=== PATIENT | female | born 1955 | race Caucasian/White ===

== ENCOUNTER 2019-04-06 07:23 | Emergency (ER) | payer SELFPAY ==
[2019-04-06 07:27] VITALS: BP 183/114; PULSE 84; RESP 18; TEMP 36.8; O2SAT 98; BMI 32.4
--- NOTE | 2019-04-06 07:29 | XR_ITS ---
WS: [id number] WRIST RIGHT TECHNIQUE: 2 views of the right wrist CLINICAL INFORMATION: fall COMPARISON: None. FINDINGS: Comminuted fracture distal radius. Dorsal displacement of the distal fragment. Displacement approxima tely 1 shaft width. Soft tissue edema. Ulna styloid avulsion. 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 XR/XR wrist RT 2V [id number] IMPRESSION: 1. Comminuted fracture distal radius with dorsal displacement of the distal fr agment approximately one shaft width. 2. Ulna styloid avulsion. 3. Soft tissue edema.
--- NOTE | 2019-04-06 07:30 | W.ED.UPPEXIN ---
HPI - Extremity Injury (Upper) General: Chief Complaint: Extremity Injury, Upper Stated Complaint: RIGHT WRIST PAIN POST FALL Time Seen by Provider: 04/06/19 07:25 Source: patient Mode of arrival: ambulatory Limitations: no limitations History of Present Illness: HPI narrative: 63 yo female patient presents to ER c/o tripping and falling landing on right wrist. Pt did not hit head and had no LOC. pt states she just trip with no preceeding symptoms to fall. 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) Other injuries: none Place: home Severity: moderate Relieving factors: immobilization Exacerbating factors: movement of extremity Context: fall Associated symptoms: Reports no associated symptoms; Denies weakness in extremities Review of Systems Const: Denies: fever or chills Eyes: Denies: change in vision ENMT: Denies: throat pain or dental pain Card: Denies: chest pain or palpitations Resp: Denies: shortness of breath, wheezing or stridor GI: Denies: abdominal pain, nausea or vomiting : Denies: flank pain, difficulty urinating, painful urination or urinary frequency Musc: Reports: joint pain (right wrist pain) Skin/Breast: Denies: rash Neuro: Denies: headache, numbness in extremities or weakness in extremities Psych: Denies: anxiety, suicidal ideation or homicidal ideation PFSH ED PFSH: Statuses (acute, chronic, etc) shown below reflect problem list status as previously entered and may not be historically accurate Social History (Updated 04/06/19 @ 12:26 by Juanpablo Ott MD) Smoking and tobacco status: never smoked Current occupation: Patient does [employer] work at the [employer] here in [place] Physical Exam Const: COMMON NORMALS: no apparent distress and no limitations GENERAL APPEARANCE: cooperative ORIENTATION/CONSCIOUSNESS: Yes awake, Yes oriented to person, Yes oriented to place and Yes oriented to time Resp: COMMON NORMALS: normal respiratory effort, no retractions and clear to auscultation bilaterally AUSCULTATION: clear to auscultation bilaterally Cardio: COMMON NORMALS: regular rate and regular rhythm RATE: regular rate RHYTHM: regular rhythm : COMMON NORMALS: Yes no CVA tenderness BLADDER/KIDNEY EXAM: Yes no CVA tenderness Back/Pelvis: COMMON NORMALS: no CVA tenderness, thoracic and lumbar spine normal to inspection, no thoracic nor lumbar tenderness and thoraco-lumbar ROM normal THORACIC SPINE/UPPER BACK: Yes normal to inspection and Yes thoracic ROM normal LUMBAR SPINE/LOWER BACK: Yes normal to inspection and Yes lumbar ROM normal Extremity: RIGHT UPPER EXTREMITY: Yes wrist Right wrist: Yes inspection (deformity noted to distal ulnar/radial), Yes ROM (limited due to pain) and Yes neurovascular exam (intact) Neuro: SENSORIUM/ORIENTATION: Yes oriented to person, Yes oriented to place and Yes oriented to time Course ED course: I suspect patient has a distal ulnar/radial fracture that will possibly require reduction. I will order xray at this time. Pt states she does not want anything for pain at this time. Pt is NVI distal to deformity of right wrist. I discussed case with Dr. Ott. He will come in at noon to attempt reduction in ER and if unsuccessful will plan to take to surgery. Pt pain is controlled at this time. Pt remains NVI. Dr. Ott attempted reductio in the ER but plans to take to outpatient surgery tomorrow. Pt has been advised on instructions. Will send patienthome with short course of pain meds. Risk advised Return precautions advised. SPlint placed pt NVI after splint application Vital Signs: Vital signs: Vital Signs Temperature 98.3 F 04/06/19 07:27 Pulse Rate 87 04/06/19 10:34 Respiratory Rate 18 04/06/19 07:27 Blood Pressure 149/93 04/06/19 10:34 Pulse Oximetry 95 04/06/19 10:34 Discharge Plan Discharge Patient Disposition: Home, Self-Care Clinical Impression: Fracture of wrist Qualifiers: Encounter type: initial encounter Fracture type: closed Laterality: right Qualified Code(s): S62.101A - Fracture of unspecified carpal bone, right wrist, initial encounter for closed fracture Closed fracture of ulna, styloid process Qualifiers: Encounter type: initial encounter Fracture alignment: nondisplaced Laterality: right Qualified Code(s): S52.614A - Nondisplaced fracture of right ulna styloid process, initial encounter for closed fracture Condition: Stable Prescriptions: [place] 5-325 mg tablet 1 tab PO Q8H PRN (Reason: pain) Qty: 14 RF: 0 No Action ibuprofen 200 mg Tablet 400 mg PO PRN RF: 0 Bc Powder 1 packet PO PRN RF: 0 Discharge Orders: Discharge Order (Routine); Ordered 04/06/19 Ordered By: Shanae Perez Referrals: [facility] [Other] Shanae Perez [Emergency Provider] - Juanpablo Ott MD [Physician] - (Tomorrow for outpatient surgery) Patient Instructions: Wrist Fracture in Adults (ED) Activity Restrictions/Additional Instructions: Nothing to eat or drink after midnight Coding Level of Care Code ED Chief Of Anesthesiology for Chg Fwd Exam Problem Focused
[2019-04-06 07:33] VITALS: O2SAT 95
--- NOTE | 2019-04-06 07:36 | PC.NURSE ---
pt has swelling noted to right wrist, pain upon movement, circulation intact.
[2019-04-06] MEDS: HYDROcodone-acetaminophen 5-325 mg Tablet 1 TAB PO (07:51)
--- NOTE | 2019-04-06 07:52 | PC.NURSE ---
portable xray at bedside
[2019-04-06 10:34] VITALS: BP 149/93; PULSE 87; O2SAT 95
[2019-04-06] MEDS: ondansetron 2 mg/ML SDV 2 mL 4 MG IVP (10:47)
[2019-04-06] MEDS: morphine 4 mg/mL SDV 1 mL IVP ×2 (10:47→11:19)
--- NOTE | 2019-04-06 11:11 | PC.NURSE ---
consent obtained for Dr. Ott to perform closed reduction
--- NOTE | 2019-04-06 11:11 | PC.NURSE ---
Dr. Ott at bedside
--- NOTE | 2019-04-06 11:47 | XR_ITS ---
WS: [id number] WRIST RIGHT TECHNIQUE: 2 views of the right wrist CLINICAL INFORMATION: post reduction COMPARISON: None. FINDINGS: Postreduction images. Splint material degrades images. Again seen is the comminuted distal radial fra cture with dorsal displacement of the distal fragment. Alignment appears slightly improved. Ulna styl oid avulsion. XR/XR wrist RT 2V [id number] IMPRESSION: Post reduction images described above
--- NOTE | 2019-04-06 12:15 | PC.NURSE ---
portable xray at bedside
--- NOTE | 2019-04-06 12:23 | PM.OPSURHP ---
Providers/Chief Complaint Admitting Physician: Juanpablo Ott MD Chief Complaint: RIGHT WRIST PAIN POST FALL History of Present Illness Cristela Eaton is a 63 year old female who fell today at work. 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 She states she allegedly tripped over a pipe landing on her extended right arm with immediate pain. She is seen in the emergency room today where radiographs revealed a displaced fracture of the right distal radius. I am asked to see the patient for treatment Review of Systems General: Reports: 10 or more systems reviewed and unremarkable except in HPI and below Medications/Allergies Home Medications Medication Instructions Recorded Confirmed Last Taken Type Bc Powder 1 packet PO PRN 04/06/19 04/06/19 04/05/19 History ibuprofen 400 mg PO PRN 04/06/19 04/06/19 Unknown History Allergies Allergy/AdvReac Type Severity Reaction Status Date / Time No Known Allergies Allergy Verified 04/06/19 07:32 PFSH PFSH: Statuses (acute, chronic, etc) shown below reflect problem list status as previously entered and may not be historically accurate Social History (Updated 04/06/19 @ 12:26 by Juanpablo Ott MD) Smoking and tobacco status: never smoked 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 NECK: Soft supple nontender. HEART: Normal heart sounds, regular rhythm. CHEST: Clear to auscultation. ABDOMEN: Soft nontender nondistended. Examination of the patient's right wrist she has clear swelling and dorsal displacement of the carpus relative to the shaft. She will not move her fingers due to pain. She has a strong radial pulse and good capillary refill in the digits. He has subjective diminished sensation in a median nerve distribution in her hand Data Imaging^: Xray Ortho: My impression: The patient has a displaced apparently extra-articular fracture of the left distal radius there is some obliquity to the fracture line which could affect stability. I cannot see any obvious intra-articular extension A&P Assessment and plan (1) Colles' fracture of right radius: I discussed treatment options with the patient at length. I told her we could try a closed reduction and there is a chance we could get something satisfactory. I told her if a adequate reduction is not obtained in the laboring dominant hand surgery could be required. I discussed options with her and she agreed to proceed. The right wrist was prepped dorsally with Betadine. A hematoma block was provided by infiltrating 10 cc of lidocaine in the fracture site. A closed reduction was accomplished and the patient placed in a sugar tong splint. Postreduction radiographs were obtained showing persistent dorsal dislocation of the articular surface. I do not feel been stable reduction could be obtained with further closed reduction alone. I think our options at this point would be srugical stabilizaion. I warned the patient with nonoperative use she would likely have deformity of her wrist and possibly pain and limited strength. I discussed risks with pinning including pin tract infection and the need for additional immobilization. I feel a very good result could be obtained with open reduction and internal fixation. I discussed open reduction internal fixation with the patient in detail. I told the patient that I think this would get worse the most rapid return of function. We can restore radiographic parameters much closer to normal and I think we can ensure her a very good long-term outcome. I discussed risks of surgery including bleeding, infection, unlikely but possible nerve injury. I discussed unlikely complications with tendons including tendon rupture. I discussed the possible need for hardware removal. The patient expressed understanding, understand the alternatives and agreed to proceed with surgery. Status: Acute Code(s): S52.531A - Colles' fracture of right radius, initial encounter for closed fracture Coding Level of Care Code Acute Biological Photographer for [facility] Fwd Diagnoses Colles' fracture of right radius S52.531A
[2019-04-06 13:20] VITALS: BP 149/97; PULSE 70; O2SAT 93
== END 2019-04-06 13:20 | disposition home or self-care (01) ==
PROVIDERS: Emergency Provider Registered Nurse
DX: S52.531A Colles' fracture of right radius, initial encounter for closed fracture (principal); S52.611A Displaced fracture of right ulna styloid process, initial encounter for closed fracture; W01.0XXA Fall on same level from slipping, tripping and stumbling without subsequent striking against object, initial encounter; Y92.69 Other specified industrial and construction area as the place of occurrence of the external cause
CPT/HCPCS: 12345; 25605; 73100; 96374; 96375; 99282; 99284; J2270; J2405

== ENCOUNTER 2019-04-07 07:20 | Day surgery (SDC) | payer SELFPAY ==
[2019-04-06 16:47] VITALS: BMI 32.4
[2019-04-07] VITALS (16 sets, daily range): BP systolic 139–175; BP diastolic 86–126; PULSE 81–109; RESP 14–20; TEMP 36.5–36.9; O2SAT 90–97
--- NOTE | 2019-04-07 | XRR_ITS ---
PROCEDURE INFORMATION: Exam: XR Right Wrist Exam date and time: 04/07/2019 9:26 AM Age: 63 years old Clinical indication: Injury or trauma; Fall; Initial encounter; Fracture, traumatic injury; Closed fracture; Radius; Right; Distal end; Injury date: 04/06; Additional info: Orif right wrist TECHNIQUE: Imaging protocol: XR Right wrist. Views: 1 or 2 views. COMPARISON: CR XR wrist RT 2V [id number] 04/06/2019 12:00 PM FINDINGS: Bones/joints: Fracture of the distal metaphysis of the radius status post ORIF with metallic plate and screws in place. The bones show anatomic alignment. Lung Soft tissues: Unremarkable XR/XR wrist RT 2V [id number] IMPRESSION: Fracture of the distal radius status post ORIF.
--- NOTE | 2019-04-07 | SCC_ITS ---
Procedure Done: Open reduction internal fixation 2 part right distal radius fracture 37.3 seconds of fluoroscopic guidance, for a cumulative dose of 0.58 mGy, was provided to Dr. Ott by the radiology department. C-arm images of the RIGHT wrist were saved for the patient's permanent record. [facility]ITAL[facility]
[2019-04-07] MEDS: sodium chloride 0.9% 1,000 ML 30 ML IV (08:01)
--- NOTE | 2019-04-07 08:08 | ANES.PREANE2 ---
Pre-Anesthetic Assessment Pre-Anesthetic Assessment: Height/Weight: Height 1.45 m Weight 68.039 kg Temp Pulse Resp BP Pulse Ox 98.4 F 87 18 143/97 96 04/07/19 07:46 04/07/19 07:46 04/07/19 07:46 04/07/19 07:46 04/07/19 07:46 Preop Diagnosis: Right Colles fracture Proposed Procedure: Operation Date: 04/07/19 09:00 Proposed Procedures p ORIF Wrist 33901 S52.531A(Right) - Juanpablo Ott MD Was Beta Karon taken within 24 hours: N/A Last intake: Intake Last Liquid Date 04/07/19 Last Liquid Time 00:00 Last Solid Date 04/07/19 Last Solid Time 00:00 Last Intake: 00:00 Exam: Pre-Anes Outpt Exam: alert, oriented x 3, clear to auscultation bilaterally and regular rate & rhythm Airway: MP: 1 Additional comments: 7 front teeth on top and bottom. All others are missing History/ROS: Other (PONV) Pulmonary: Pulmonary: None reported CV/HEM: CV/HEM: None reported : : None reported Hepatic: Hepatic: None reported GI: GI: GERD Comments: uncontrolled Metabolic: Metabolic: None reported Neuropsych: Neuropsych: None reported Anesthetic Plan: ASA status: II Anesthesia: General Risk of > 500 ml blood loss (7ml/kg in children): No Meds/Allergies Current Medications: Current Medications Generic Name Dose Route Start Last Admin Trade Name Freq PRN Reason Stop Dose Admin Sodium Chloride 1,000 mls @ 30 ml s/hr 04/07/19 07:00 04/07/19 08:01 Sodium Chloride 0.9% IV 04/08/19 06:59 30 mls/hr .Q24H MEME Administration PFSH Anesthesia PFSH: Social History (Updated 04/06/19 @ 12:26 by Juanpablo Ott MD) Smoking and tobacco status: never smoked 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
--- NOTE | 2019-04-07 09:35 | SUR.PHASEI ---
7849 PATIENT TO PACU AT THIS TIME. RR EVEN AND UNLABORED. PLACE ON SIMPLE MASK AT 8L, SPO2 98%. DRESSING INTACT TO RIGHT WRIST, WITH SLING IN PLACE. CAP REFILL LESS THAN 3 SECONDS. PATIENT RESPONDS TO VERBAL STIMULI, PATIENT DENIES PAIN.
--- NOTE | 2019-04-07 09:39 | P.OP_ITS ---
Operative Report Date of procedure: April 07, 2019 Pre-op Diagnosis: Right Colles fracture, neuropraxia right median nerve Post-op Diagnosis: The patient had a extra-articular fracture of the right distal radius with dorsal comminution and dorsal displacement Procedure Done: Open reduction internal fixation 2 part right distal radius fracture Implants: Very ask short narrow distal radial plate Surgeon: Juanpablo Ott Anesthesia: General Estimated blood loss (mL): 25 Tourniquet time (min): 29 Complications: None Findings: The patient unstable fracture of the right distal radius with significant dorsal comminution and dorsal displacement of the distal fragment. The median nerve was inspected at the level of the fracture and in continuity with no visible damage Condition: stable Disposition: same day Brief History: The patient is a 63-year-old female who fell at work with a resulting displaced fracture of the right distal radius. He was seen in the emergency room shortly after the fall complaining of not only wrist pain but numbness and pain in her thumb index and long finger. An attempted closed reduction failed. She was scheduled today for open reduction internal fixation of the unstable distal radius fracture. As the onset of her median nerve symptoms was immediate after the injury and nonprogressive etiology was thought to be traumatic neuropraxia and carpal tunnel release was not planned. Procedure: Initial attempts were made at closed reduction however a satisfactory stable reduction could not be obtained. A decision was made to proceed with open reduction internal fixation.A 5 cm long incision was made along over the flexor carpi radialis tendon. Dissection was carried down through the tendon sheath. Dissection was carried down bluntly to the pronator quadratus. The pronator quadratus was elevated off of the distal radius leaving a cuff for later repair. Closed reduction was accomplished of the distal radius. A [employer] short narrow plate was applied. It was fixed distally with 1 standard screw to bring the distal fragment to the plate and 2 locking screws and proximally with 3 bicortical screws. Intraoperative imaging showed excellent position of the hardware. The wound was irrigated with saline. The pronator quadratus was reapproximated with 2-0 Vicryl. Subcutaneous tissues were closed with 2-0 Vicryl. The skin was closed with skin melissa. Sterile dressings were applied. The patient was taken to outpatient surgery in stable condition.
[2019-04-07] MEDS: fentaNYL 50 mcg/mL INJ 2mL IVP ×2 (09:41→09:49)
[2019-04-07] MEDS: labetalol 5 mg/mL SDV 20mL IVP (10:20)
--- NOTE | 2019-04-07 10:28 | SUR.PHASEI ---
PATIENT RATES PAIN 7/10, RESTING WITH EYES CLOSED, EASILY AROUSED. AGREES TO TAKE A PAIN PILL IN OPS.
--- NOTE | 2019-04-07 10:36 | SUR.PHASEI ---
1032 PATIENT TO OPS FROM PACU. A/XO3. RR EVEN AND UNLABORED. DRESSING INTACT TO RIGHT WRIST, SLING IN PLACE, CAP REFILL LESS THAN 3 SECONDS.
[2019-04-07] MEDS: oxyCODONE 5 mg IR Tab/Cap PO (10:44)
== END 2019-04-07 11:29 | disposition home or self-care (01) ==
PROVIDERS: Visit Provider Orthopaedic Surgery
PROC: (CPT 25607; principal; 2019-04-07 08:40)
DX: S52.531A Colles' fracture of right radius, initial encounter for closed fracture (principal); X58.XXXA Exposure to other specified factors, initial encounter; K21.9 Gastro-esophageal reflux disease without esophagitis
CPT/HCPCS: 25607; 12345; 73100; 76000; C1713; J0690; J1100; J1580; J1885; J2250; J2405; J3010; J3490; J7030

== ENCOUNTER 2019-04-22 14:17 | Outpatient (CLI) | payer SELFPAY | END 2019-04-22 14:18 | disposition home or self-care (01) | LOC: SPT 14:18 | PROVIDERS: Visit Provider Orthopaedic Surgery | DX: S52.531D Colles' fracture of right radius, subsequent encounter for closed fracture with routine healing (principal); X58.XXXD Exposure to other specified factors, subsequent encounter | CPT/HCPCS: L3908 ==

== ENCOUNTER → 2019-05-13 14:40 | Outpatient (BNVA) | payer SELFPAY | PROVIDERS: Visit Provider Orthopaedic Surgery | DX: Z98.890 Other specified postprocedural states (principal); S52.501A Unspecified fracture of the lower end of right radius, initial encounter for closed fracture; X58.XXXA Exposure to other specified factors, initial encounter | CPT/HCPCS: 73110 ==

== ENCOUNTER → 2019-06-14 10:45 | Outpatient (BNVA) | payer SELFPAY | PROVIDERS: Visit Provider Orthopaedic Surgery | DX: Z98.890 Other specified postprocedural states (principal); S52.501A Unspecified fracture of the lower end of right radius, initial encounter for closed fracture; S52.601A Unspecified fracture of lower end of right ulna, initial encounter for closed fracture; X58.XXXA Exposure to other specified factors, initial encounter | CPT/HCPCS: 73110 ==

== ENCOUNTER → 2019-07-22 13:47 | Outpatient (BNVA) | payer SELFPAY | PROVIDERS: Visit Provider Orthopaedic Surgery | DX: S52.531A Colles' fracture of right radius, initial encounter for closed fracture (principal); Z98.890 Other specified postprocedural states; S54.10XA Injury of median nerve at forearm level, unspecified arm, initial encounter; X58.XXXA Exposure to other specified factors, initial encounter | CPT/HCPCS: 73110 ==

== ENCOUNTER 2021-05-28 14:36 | Emergency (ER) | payer MEDICARE, SELFPAY ==
[2021-05-28 14:55] VITALS: BP 168/94; PULSE 88; RESP 18; TEMP 36.5; O2SAT 95; BMI 32.4
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
--- NOTE | 2021-05-28 17:49 | ECG_ITS ---
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 Measurements Intervals [place] Rate: 73 P: 40 ND: 160 QRS: -10 QRSD: 89 T: 9 QT: 385 QTc: 425 Interpretive Statements SINUS RHYTHM No previous ECG available for comparison Electronically Signed On 05-28-2021 22:00:24 CDT by Chetan Kearney M.D. [email or web address]
--- NOTE | 2021-05-28 17:50 | XRR_ITS ---
PROCEDURE INFORMATION: Exam: XR Chest Exam date and time: 05/28/2021 6:01 PM Age: 65 years old Clinical indication: Chest wall pain; Additional info: Chest pain, HTN TECHNIQUE: Imaging protocol: XR of the chest. Views: 1 view. COMPARISON: [facility] [place] Chest 2 views 08/11/2017 5:20 PM FINDINGS: Lungs: Unremarkable. No consolidation. Pleural spaces: Unremarkable. No pleural effusion. No pneumothorax. Heart/Mediastinum: Unremarkable. No cardiomegaly. Bones/joints: Unremarkable. XR/XR chest 1V portable [id number] IMPRESSION: No acute findings.
[2021-05-28 18:25] LABS: Basophils # 0.1 10^3/uL (0.0-0.1); Eosinophils % 0.1 %; Hematocrit 36.4 % (37.0-47.0); Hemoglobin 12.2 g/dL (11.5-15.3); Lymphocytes # 0.8 10^3/uL (0.8-4.8); Mean Corpuscular HGB Conc 33.5 g/dL (30.0-36.0); Mean Corpuscular Hemoglobin 31.9 pg (28.0-34.0); Mean Platelet Volume 10.1 fL (7.4-10.4); Monocytes # 0.5 10^3/uL (0.2-0.9); Monocytes % 5.6 %; Neutrophils # 7.77 10^3/uL (1.8-7.7); Nucleated Red Blood Cells % 0.4 %; Platelet Count 402 10^3/cmm (130-400); Red Blood Count 3.83 10^6/uL (4.1-5.3); Red Cell Distribution Width 20.9 % (12.1-15.1); White Blood Count 9.7 10^3/uL (4.0-10.0)
[2021-05-28 18:29] VITALS: BP 187/103; PULSE 79; RESP 24; O2SAT 98
[2021-05-28 18:39] LABS: Neutrophils % 85.3 %
[2021-05-28 18:43] LABS: Alanine Aminotransferase 11 U/L (0-33); Albumin Level 4.6 g/dL (3.5-5.2); Alkaline Phosphatase 86 IU/L (35-105); Anion Gap 17.9 (5-19); Aspartate Amino Transferase 14 U/L (0-32); Blood Urea Nitrogen 15 mg/dL (8-23); Calcium 8.4 mg/dL (8.5-10.5); Carbon Dioxide 23 mmol/L (22-29); Chloride 104 mmol/L (98-107); Globulin 2.9 g/dL (1.3-4.6); Glomerular Filtration Rate 123.4 mL/min (90-130); Glucose 123 mg/dL (65-115); Osmolality Calculated 294 mOsm/kg (285-295); Potassium 3.9 mmol/L (3.5-5.1); Sodium 141 mmol/L (136-145); Total Bilirubin 0.4 mg/dL (0.15-1.2); Total Protein 7.5 g/dL (6.6-8.7)
[2021-05-28 18:44] LABS: Troponin(5th) Baseline 6 ng/L (0-10)
[2021-05-28 19:40] VITALS: BP 172/98; PULSE 93; RESP 24; O2SAT 96
== END 2021-05-28 19:41 | disposition home or self-care (01) ==
PROVIDERS: Emergency Provider Nurse Practitioner Family; PCP Electrodiagnostic Medicine
DX: M50.30 Other cervical disc degeneration, unspecified cervical region (principal); I10 Essential (primary) hypertension; Z79.52 Long term (current) use of systemic steroids
CPT/HCPCS: 71045; 80053; 84484; 85025; 93005; 99283

== ENCOUNTER 2023-06-20 15:15 | Outpatient (CLI) | payer MEDICARE, SELFPAY ==
--- NOTE | 2023-06-20 15:26 | MM_ITS ---
WS: [id number] BILATERAL 3D TOMOSYNTHESIS DIGITAL SCREENING MAMMOGRAPHY WITH CAD CLINICAL INFORMATION: SCREENING HISTORY: Screening mammogram. No current complaints. COMPARISON: 2010 TECHNIQUE: Bilateral CC and MLO views. FINDINGS: The breasts are composed of heterogeneous fibroglandular density tissue, which can limit the detectio n of small underlying mass lesions. No suspicious mass, asymmetry, calcifications, or architectural d istortion. No evidence of malignancy. Incidental punctate calcifications. Vascular calcifications. IMPRESSION: MM/[place] [id number] BI-RADS: 2-Benign FOLLOW UP: 1 Year Follow-up Recommend return to annual screening mammography.
== END 2023-06-20 15:16 | disposition home or self-care (01) ==
LOC: RAD 15:17
PROVIDERS: PCP Electrodiagnostic Medicine; Visit Provider Nurse Practitioner Family
DX: Z12.31 Encounter for screening mammogram for malignant neoplasm of breast (principal)
CPT/HCPCS: 77063; 77067

== ENCOUNTER 2023-09-29 09:14 | Outpatient (CLI) | payer MEDICARE, SELFPAY ==
--- NOTE | 2023-09-29 09:17 | CT_ITS ---
WS: [id number] CT HEAD TECHNIQUE: Noncontrast CT of the head obtained from the skullbase to the vertex. CLINICAL INFORMATION: HEADACHE COMPARISON: None. DLP: 1003.[address] scans at [facility] use at least one of these dose optimization techniques: automated e xposure control; mA and/or kV adjustment per patient size (includes targeted exams where dose is matc hed to clinical indication); or iterative reconstruction. FINDINGS: No evidence of intracranial hemorrhage or mass effect. Ventricular system and basal cisterns are hodge nt. Mild small vessel changes with mild parenchymal volume loss. Chronic lacunar infarct RIGHT caudat e and basal ganglia. No extra-axial fluid collections. No evidence of mass or mass effect. Vascular c alcification. Mild mucosal thickening in the partially visualized ethmoid air cells. Mastoid air cells well aerated . Normal posterior nasopharynx. CT/CT head wo con* [id number] IMPRESSION: 1. No evidence of intracranial hemorrhage or mass effect. 2. Chronic lacunar infarct RIGHT caudate and basal ganglia new from previous. 3. Mild small vessel changes. Mild parenchymal volume loss progressed compared to previous 4. Vascular calcification. 5. No acute intracranial findings.
== END 2023-09-29 09:15 | disposition home or self-care (01) ==
LOC: RAD 09:14
PROVIDERS: PCP Electrodiagnostic Medicine; Visit Provider Nurse Practitioner Family
DX: I63.81 Other cerebral infarction due to occlusion or stenosis of small artery (principal); I67.2 Cerebral atherosclerosis; J34.89 Other specified disorders of nose and nasal sinuses
CPT/HCPCS: 70450

== ENCOUNTER 2024-01-01 12:40 | Outpatient (RCR) | payer MEDICARE, SELFPAY | END 2024-01-01 23:59 | disposition home or self-care (01) | LOC: SPT 12:40 | PROVIDERS: Visit Provider Student in an Organized Health Care Education/Training Program | DX: Z98.890 Other specified postprocedural states (principal) | CPT/HCPCS: 97110; 97161 ==

== ENCOUNTER 2024-01-02 06:00 | Outpatient (RCR) | payer MEDICARE, SELFPAY | END 2024-01-31 23:59 | disposition home or self-care (01) | LOC: SPT 06:00 | PROVIDERS: Visit Provider Student in an Organized Health Care Education/Training Program | DX: Z98.890 Other specified postprocedural states (principal) | CPT/HCPCS: 97110; G0283 ==